=== PATIENT | male | born 1970 | race Caucasian/White ===

== ENCOUNTER 2016-10-11 18:16 | Emergency (ER) | payer MEDICAID ==
[2016-10-11 18:21] VITALS: BP 130/94; PULSE 98; RESP 16; TEMP 98.2; O2SAT 94
--- NOTE | 2016-10-11 18:33 | EDPHY ---
H & P Stated Complaint: Pt having pain feels like he "ruptured his hernia" Time Seen by Provider: 10/11/16 18:32 - Personal History Current Tetanus/Diphtheria Vaccine: Yes Current Tetanus Diphtheria and Acellular Pertussis (TDAP): Yes - Medical/Surgical History Hx Asthma: No Hx Chronic Respiratory Disease: No Hx Diabetes: No Hx Cardiac Disease: No Hx Renal Disease: No Hx Cirrhosis: No Hx Alcoholism: No Hx HIV/AIDS: No Hx Splenectomy or Spleen Trauma: No Other PMH: epilepsy hernia repair - Social History Smoking Status: Former smoker Constitutional: Initial Vital Signs Temperature (C) 36.8 C 10/11/16 18:17 Heart Rate 98 10/11/16 18:17 Respiratory Rate 16 10/11/16 18:17 Blood Pressure 130/94 H 10/11/16 18:17 O2 Sat (%) 94 10/11/16 18:17 O2 Delivery Mode Room Air Allergies/Adverse Reactions: No Known Allergies Allergy (Unverified 10/11/16 18:21) Medical Decision Making - Diagnostics Imaging: Discussed imaging studies w/ call center director Radiologist ED Course/Re-evaluation: CHIEF COMPLAINT: Right groin pain HISTORY OF PRESENT ILLNESS: This patient is a 46-year-old male who presenting to the Emergency Department complaining of intermittent pain to his right groin radiating to his right testicle beginning three hours prior to arrival. He describes the pain as a moderate to severe pressure without any identified exacerbating or alleviating factors. He denies any additional complaints; no hematuria, abdominal pain, dysuria, vomiting or diarrhea. He has a history of bilateral inguinal hernias with right-sided hernia repair. Medical history also includes one prior kidney stone. REVIEW OF SYSTEMS: A 10 point review of systems was performed and is negative with the exception of the elements mentioned in the history of present illness and left-sided neuropathy at baseline. PHYSICAL EXAM: HR 98, BP 130/94, O2 Sat 94%, RR 16. Temp noted at 36.8C. General Appearance: Alert, well hydrated, appropriate, and non-toxic appearing. Head: Atraumatic without scalp tenderness or obvious injury Eyes: Pupils equal, round, reactive to light and accommodation, EOMI, no trauma , no injection. Ears: Clear bilaterally, no perforation, normal landmarks Nose: Atraumatic, no rhinorrhea, clear. Throat: There is no erythema or exudates, no lesions, normal tonsils, mucus membranes moist. Neck: Supple, 2+ carotid upstroke, nontender, no lymphadenopathy. Respiratory: No retractions, no distress, no wheezes, and no accessory muscle use. Lungs are clear to auscultation bilaterally. Cardiovascular: Regular rate and rhythm, no murmurs, rubs, or gallops. Bilateral carotid, radial, dorsalis pedis, and posterior tibial pulses intact. Good capillary refill all extremities. Gastrointestinal: Abdomen is soft, RLQ tenderness, non-distended, no masses, no rebound, no guarding, no peritoneal signs. Genitourinary: Non-tender, normal external appearance. Musculoskeletal: Normal active ROM of all extremities, atraumatic. Neurological: Alert, appropriate, and interactive. The patient has normal DTRs and non-focal cranial nerves, motor, sensory, and cerebellar exam. Skin: No rashes, good turgor, no nodules on palpation. Past medical history: Epilepsy, bilateral inguinal hernias, kidney stones, peripheral neuropathy Past surgical history: Right inguinal hernia repair Family history: Denies Social history: Father, lives in a van DIFFERENTIAL DIAGNOSIS: Differential diagnosis for the patient's scrotum pain includes but is not limited to: kidney stone, UTI, inguinal hernia. MEDICAL DECISION MAKING: This 46-year-old male with history of bilateral inguinal hernias and one prior kidney stone presents with intermittent scrotum pain beginning three hours prior to arrival. His pain is not reproducible. He does have RLQ tenderness to palpation. There are no palpable masses on exam. Will proceed with CT of the abdomen and UA. The patient declines medication for pain at this time. UA obtained and is negative for UTI or hematuria. 194: Imaging results reported to me by Dr. Herbert Hogue, radiologist, and are negative for kidney stone or hernia. I discuss imaging and UA results with the patient. He will be discharged home in good condition.with OTC pain management instructions and return precautions. - Data Points Laboratory Results: 10/11/16 19:00 Urine Color YELLOW Urine Appearance CLEAR Urine pH 5.0 (5.0-7.5) Ur Specific [place] 1.026 (1.002-1.030) Urine Protein NEGATIVE (NEGATIVE) Urine Ketones TRACE H (NEGATIVE) Urine Blood NEGATIVE (NEGATIVE) Urine Nitrate NEGATIVE (NEGATIVE) Urine Bilirubin NEGATIVE (NEGATIVE) Urine Urobilinogen 2.0 EU H EU (0.2-1.0) Ur Leukocyte Esterase NEGATIVE (NEGATIVE) Urine RBC 1-3 /hpf /hpf (0-3) Urine WBC 1-3 /hpf /hpf (0-3) Ur Epithelial Cells NONE SEEN /lpf /lpf (NONE-1+) Urine Mucus TRACE /lpf /lpf (NONE-1+) Urine Glucose NEGATIVE (NEGATIVE) Departure - Departure Disposition: Home, Routine, Self-Care Clinical Impression: Right groin pain Condition: Good Instructions: Groin Pain (ED) Additional Instructions: 1. Take 600mg Ibuprofen every 6 hours as needed for pain. 2. Follow-up with your primary care provider for reevaluation if your symptoms do not improve in 2-3 days. 3. Return to the Emergency Department for severe pain, blood in your urine, fever or chills, or other serious concerns. Referrals: JESSICA SANDRA [Other] - As per Instructions Report Scribed for: Urbano Turcios Report Scribed by: Sofia Cortes Date of Report: 10/11/16 Time of Report: 18:35
[2016-10-11 19:17] LABS: COLOR YELLOW; LEUKOCYTE ESTERASE,URINE NEGATIVE (NEGATIVE); MUCUS TRACE /lpf (NONE-1+); NITRITE,URINE NEGATIVE (NEGATIVE)
[2016-10-11] MEDS ORDERED: OFLOXACIN 0.3% SOLN PREPACK OPHT.BTL TAKEHOME ONE (19:59)
== END 2016-10-11 20:00 | disposition home or self-care (01) ==
DX: R10.30 Lower abdominal pain, unspecified (principal); Z87.891 Personal history of nicotine dependence

== ENCOUNTER 2017-09-24 15:19 | Emergency (ER) | payer MEDICAID ==
--- NOTE | 2017-09-24 15:25 | EDPHY ---
H & P Time Seen by Provider: 09/24/17 15:22 HPI/ROS: CHIEF COMPLAINT: Laceration to nose HISTORY OF PRESENT ILLNESS: 47-year-old homeless male with up-to-date tetanus arrives via ambulance after he jumped into a trash dumpster and a cocked michael pigeon launcher released impacting on the bridge of the nose. No loss of consciousness. No oral injury. No headache. No headache. No anticoagulant use. No visual disturbance or visual acuity changes. No diplopia. No epistaxis. No Anticoagulant use. No amnesia. No alcohol or drug use. PRIMARY CARE PROVIDER: REVIEW OF SYSTEMS: A ten point review of systems was performed and is negative with the exception of the items mentioned in the HPI PAST MEDICAL/SURGICAL HISTORY: no anticoagulant use, no relevant medical/ surgical history SOCIAL HISTORY: denies alcohol use at time of incident PHYSICAL EXAM 1) GENERAL: Well-developed, well-nourished, alert and oriented. Appears to be in no acute distress. Answering questions appropriately. GCS 15 2) HEAD: Normocephalic, atraumatic. 3) HEENT: Pupils equal, round, reactive to light bilaterally. Bridge of nose 2 cm transverse laceration. Negative Horners. Nasopharynx, oropharynx, clear. No angulation of the nose No septal hematoma. No rhinorrhea. No oral trauma. Ears bilaterally with normal tympanic membranes. No hemotympanum. No fluid or blood in the external auditory canal. No raccoon eyes. No Chapman sign. Teeth are normally aligned with no gross malocclusion, TMJ bilaterally nontender, facial bones nontender including the zygomatic arch, maxilla mandible. 4) NECK: No cervical collar is on. Posterior cervical spine is nontender, no stepoff, no effusion. Full range of motion which does not elicit any midline cervical spine pain, no posterior midline tenderness, no step-off. 5) LUNGS: Clear to auscultation bilaterally, no wheezes, no rhonchi, no retractions. No obvious signs of trauma. No chest wall pain. No flaring, no grunting. Moving symmetrically. No crepitus. 6) HEART: [Regular rate and rhythm, 7) ABDOMEN: No guarding, no rebound, no focal tenderness, no peritoneal signs, no signs of trauma, no ecchymosis 8) MUSCULOSKELETAL: Moving all extremities, no focal areas of tenderness, no obvious trauma. 9) BACK: No midline vertebral tenderness, no fluctuance, no step-off, no obvious trauma, no visual or palpable abnormality. 10) SKIN: laceration to bridge of nose DIFFERENTIAL DIAGNOSIS: In no particular include but limited to laceration, open nasal fracture, Smoking Status: Former smoker Constitutional: Initial Vital Signs Temperature (C) 36.5 C 09/24/17 15:22 Heart Rate 85 09/24/17 15:22 Respiratory Rate 18 09/24/17 15:22 Blood Pressure 161/89 H 09/24/17 15:22 O2 Sat (%) 99 09/24/17 15:22 O2 Delivery Mode Room Air Allergies/Adverse Reactions: No Known Allergies Allergy (Unverified 10/11/16 18:21) Home Medications: Medication Instructions Recorded Amoxicillin/Clavulanate Pot 875 mg PO BID #14 tab 09/24/17 [Augmentin 875 mg tab] Marijuana 09/24/17 MDM/Departure - MDM Procedures: Procedure: Laceration repair. I explained the indications, risks and benefits for both laceration repair and anesthetic administration. Verbal consent was obtained from the patient . The laceration on the bridge of nose was anesthetized using 0.5% bupivicaine without epinephrine . After anesthetic administered the patient was observed for a period of time and had no apparent adverse effects. The wound was cleaned , prepped, draped in normal sterile fashion and explored to its base. No foreign body seen, no foreign bodies palpated. The wound was repaired with 10 simple interrupted 6 0 Prolene sutures. The wound repair was complex. The procedure was performed by myself. Patient has been informed that scarring will occur, although efforts have been made to minimize this. ED Course/Re-evaluation: Patient has been re-evaluated with serial examinations. He has negative [place] head CT rules. Patient informed that he more likely has fractured his nasal bone. Given ENT follow-up information, started on prophylactic antibiotics. Usual and customary head injury and nasal injury precautions instructions provided. Recommend follow up with ENT. Care of patient under supervision of primary Supervising physician Dr Love . - Depart Disposition: Home, Routine, Self-Care Clinical Impression: Nasal laceration Qualifiers: Encounter type: initial encounter Qualified Code(s): S01.21XA - Laceration without foreign body of nose, initial encounter Condition: Good Instructions: Care For Your Stitches (ED), Laceration (ED) Additional Instructions: ALTHOUGH THERE IS NO EVIDENCE OF SERIOUS HEAD INJURY AT THIS TIME, DELAYED SIGNS CAN APPEAR 24 TO 48 HOURS AFTER INJURY. PLEASE RETURN TO THE EMERGENCY DEPARTMENT (ED) IMMEDIATELY IF YOU HAVE INCREASED HEADACHE, PERSISTENT HEADACHE , VOMITING, WEAKNESS, CONFUSION OR VISUAL PROBLEMS. WE RECOMMEND THAT YOU DO NOT RESUME CONTACT SPORTS OR ACTIVITIES THAT TAKE COORDINATION OR BALANCE SUCH SKIING OR RIDING A BICYCLE UNTIL CLEARED TO DO SO BY YOUR DOCTOR OR BY A NEUROLOGIST. Prescriptions: Amoxicillin/Clavulanate Pot [Augmentin 875 mg tab] 875 mg PO BID #14 tab Referrals: Return, to the ER in 5 days for suture removal [Other] - As per Instructions Bhavin Greene MD [Medical Doctor] - 1-2 days without fail
[2017-09-24 16:20] VITALS: BP 134/79
== END 2017-09-24 16:17 | disposition home or self-care (01) ==
LOC: EDUNIT#
PROC: 09QKXZZ Repair Nasal Mucosa and Soft Tissue, External Approach (ICD-10-PCS; principal; 2017-09-24)
DX: S01.21XA Laceration without foreign body of nose, initial encounter (principal); Z87.891 Personal history of nicotine dependence; W22.8XXA Striking against or struck by other objects, initial encounter; Y99.8 Other external cause status; Y93.39 Activity, other involving climbing, rappelling and jumping off

== ENCOUNTER 2018-03-14 11:45 | Emergency (ER) | payer MEDICAID ==
[2018-03-14 11:52] VITALS: BP 131/86
--- NOTE | 2018-03-14 12:20 | EDPHY ---
H & P Time Seen by Provider: 03/14/18 11:53 HPI/ROS: CHIEF COMPLAINT: Right foot pain, right groin pain HISTORY OF PRESENT ILLNESS: Patient is a 48-year-old male presents emergency department with right foot pain and right groin pain. 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 He also has been long boarding extensively. He states that he developed pain when he struck his right foot on the ground pump his skateboard. He subsequently developed pain in the right groin. His pain is mild. He has had no nausea vomiting. No incontinence of urine or stool. No dysuria frequency. Patient has no numbness or tingling. REVIEW OF SYSTEMS: 10 systems were reveiwed and are negative with the exception of the elements mentioned in the history of present illness. Past Medical/Surgical History: Includes epilepsy Past surgical history: Includes hernia repair Social history: The patient is homeless Smoking Status: Former smoker Physical Exam: Vitals noted GENERAL: Well-appearing, in no acute distress, alert. HEENT: Eyes normal to inspection, nose ring. RESPIRATORY: Clear to auscultation bilaterally. CVS: Regular rate and rhythm, no rubs, murmurs, or gallops. ABDOMEN: Soft, nontender. : Patient's right groin has no palpable mass. His testicle is normal. There is no palpable hernia. BACK: Normal to inspection, no CVA tenderness. SKIN: Normal color, no rash, warm, dry. No pallor. EXTREMITIES: Patient has mild tenderness to palpation at the base of his calcaneus extending to his arch. This appears to be over the plantar fascia. There is no erythema or warmth. No pedal edema, no calf tenderness, no Homans sign or cords, no joint swelling. NEURO/PSYCH: Alert and oriented, normal mood and affect, normal motor sensory exam. Constitutional: Initial Vital Signs Temperature (C) 36.6 C 03/14/18 11:49 Heart Rate 74 03/14/18 11:49 Respiratory Rate 18 03/14/18 11:49 Blood Pressure 131/86 H 03/14/18 11:49 O2 Sat (%) 96 03/14/18 11:49 O2 Delivery Mode Room Air Allergies/Adverse Reactions: No Known Allergies Allergy (Verified 03/14/18 11:48) Home Medications: Medication Instructions Recorded Marijuana 09/24/17 Medical Decision Making ED Course/Re-evaluation: In the emergency department I discussed possible etiologies with the patient. I answered all his questions. This time I do not feel he needs imaging. Do not feel the patient is having incarcerated or strangulated hernia. I instructed the patient on treatment of his foot pain. This could be plantar fasciitis. I explained the diagnosis. The patient was given warnings prior to leaving. Differential Diagnosis: My differential includes but is not limited to heel contusion, plantar fasciitis , fracture, sprain, strain, incarcerated hernia, strangulated hernia, hernia Departure - Departure Disposition: Home, Routine, Self-Care Clinical Impression: Rt groin pain, Plantar fasciitis of right foot Condition: Good Instructions: Plantar Fasciitis (ED), Plantar Fasciitis Exercises (ED), Groin Pain (ED) Additional Instructions: Follow instructions provided. Return with increasing pain, nausea, vomiting or any other concerns. Referrals: Suresh Gaston MD [Medical Doctor] - 5-7 days, call for appt.
== END 2018-03-14 12:28 | disposition home or self-care (01) ==
DX: M72.2 Plantar fascial fibromatosis (principal); R10.9 Unspecified abdominal pain; Z87.891 Personal history of nicotine dependence; Z59.0 Homelessness

== ENCOUNTER 2018-10-06 16:09 | Emergency (ER) | payer MEDICAID ==
--- NOTE | 2018-10-06 16:43 | EDPHY ---
H & P Stated Complaint: R shoulder injury after skateboard accident 8 days ago Source: Patient Exam Limitations: No limitations - Medical/Surgical History Hx Asthma: No Hx Chronic Respiratory Disease: No Hx Diabetes: No Hx Cardiac Disease: No Hx Renal Disease: No Hx Cirrhosis: No Hx Alcoholism: No Hx HIV/AIDS: No Hx Splenectomy or Spleen Trauma: No Other PMH: "epilepsy". hernia repair - Social History Smoking Status: Light smoker Time Seen by Provider: 10/06/18 16:42 HPI/ROS: HPI: This is a 48-year-old male who presents with Chief Complaint: R shoulder injury after skateboard accident 8 days ago Location: Right shoulder, left clavicle Quality: Injury Duration: 8 days ago Signs and Symptoms: No bleeding, no radiation, no numbness, no weakness, no tingling, no incontinence, + decreased range of motion, no swelling, + pain, no fever Timing: Acute, worse with certain movement Severity: Moderate Context: Patient was riding his skateboard, when he lost his balance and fell forward landing on both outstretched hands and then turning and hitting his right shoulder. He denies any pain in his bilateral hands or wrists or elbows. He complains of right shoulder discomfort and inability to raise to heart level or above his head. He also notes "a bump" right below his left clavicle. Right-hand dominant. Denies LOC/head injury/neck pain/dizziness/nausea/ vomiting/amnesia. Does Not take blood thinners. Modifying Factors: No [id number] pain medications Comment: ROS: A comprehensive 10 system review of systems is otherwise negative aside from elements mentioned in the history of present illness. MEDICAL/SURGICAL/SOCIAL HISTORY: Medical history: Epilepsy Surgical history: Hernia repair Social history: Marijuana user. Transient. Cheondoism CONSTITUTIONAL: Physically fit middle-aged white male who appears older than stated age, awake and alert, no obvious distress HEENT: Atraumatic and normocephalic. NECK: supple, no midline tenderness, flexion 45 degrees, extension 45 degrees, right and left lateral flexion 45 degrees. No meningismus. Cardiovascular: Normal S1/S2, regular rate, regular rhythm, without murmur rub or gallop. PULMONARY/CHEST: Symmetrical and mild left-sided anterior right below the clavicle tenderness to palpation but no ecchymosis or deformity. no crepitus. Clear to auscultation bilaterally. Good air movement. No accessory muscle usage. ABDOMEN: Soft, nondistended, nontender, no ecchymosis. PELVIC: no pain with rocking; bilateral hips flexion 125 degrees, extension 30 degrees, with no pain internal rotation and no pain external rotation. BACK: No midline tenderness, no paraspinous spasm, deep tendon reflexes 2/2, no pain with straight leg raise, No foot drop. Achilles reflexes are equal bilaterally. Able to walk on heels and toes without difficulty. EXTREMITIES: 2/2 pulses, strength 5/5, right SHOULDER: Decreased abduction, horizontal flexion, horizontal extension secondary to pain. Moderate pain with Neer test/Dorman test (impingement). Mild Tenderness to palpation over AC joint. no clavicle deformity appreciated. DIP/PIP/MCP flexion/extension intact with good light touch sensation. no deformities, no clubbing, no cyanosis , no edema. NEUROLOGICAL: no focal neuro deficits. GCS 15. Light touch sensation intact. SKIN: Warm and dry, no erythema. no rash. Good capillary refill. (Diana Olivia) Constitutional: Initial Vital Signs Temperature (C) 36.7 C 10/06/18 16:35 Heart Rate 75 10/06/18 16:35 Respiratory Rate 16 10/06/18 16:35 Blood Pressure 113/70 10/06/18 16:35 O2 Sat (%) 97 10/06/18 16:35 O2 Delivery Mode Room Air Allergies/Adverse Reactions: No Known Allergies Allergy (Verified 10/06/18 16:33) Home Medications: Medication Instructions Recorded Marijuana 09/24/17 Medical Decision Making - Diagnostics Imaging Results: Imaging Impressions Chest X-Ray 10/06/18 17:02 Impression: 1. No active cardiopulmonary disease seen. 2. Anterior wedge compression fractures of T6 and T7 of indeterminate age. This could be related to recent trauma. Clinical correlation recommended. If indicated, consider DEXA scan at some point to evaluate for underlying bone mineral density. Shoulder X-Ray 10/06/18 17:02 Impression: Normal Right shoulder series. ED Course/Re-evaluation: I did not see this patient while he was in the emergency department. However his care was discussed with the PA while the patient was in the department. I agree with treatment plan and management (Fabian Medina) Vital signs reviewed and stable upon arrival. Right shoulder x-ray my read shows no fracture, no dislocation. Chest x-ray ordered radiology read: Anterior wedge compression fractures of T6 and T7 of indeterminate age. Back exam is completely benign. Patient reports that he fell a couple weeks ago on his back but denies any back pain. Patient adamantly declines CT thoracic scan for further evaluation. Patient is being very difficult at this time. No neurological deficits to warrant emergent MRI Given follow-up with Neurosurgery if patient deems to pursue further treatment. No signs of neurovascular compromise/tenting of skin/compartment syndrome/ extremities and joints examined above and below area of concern and are neurovascularly intact. This patient was seen under the supervision of my secondary supervising physician. I evaluated and cared for this patient independently. (Diana Olivia) Differential Diagnosis: Shoulder injury differential diagnosis includes but is not limited to clavicle fracture, contusion, AC joint separation, rotator cuff injury, labral tear, humeral head fracture, sprain, scapula fracture. (Diana Olivia) Departure - Departure Disposition: Home, Routine, Self-Care Clinical Impression: Sprain of right shoulder Qualifiers: Encounter type: initial encounter Shoulder sprain type: unspecified sprain Qualified Code(s): S43.401A - Unspecified sprain of right shoulder joint, initial encounter Contusion of rib on left side Qualifiers: Encounter type: initial encounter Qualified Code(s): S20.212A - Contusion of left front wall of thorax, initial encounter Compression fracture of thoracic vertebra Qualifiers: Encounter type: subsequent encounter Thoracic vertebra fracture level: T7 Fracture healing: with routine healing Qualified Code(s): S22.060D - Wedge compression fracture of T7-T8 vertebra, subsequent encounter for fracture with routine healing Condition: Good Instructions: How to Use a Sling (ED), Shoulder Sprain (ED), Rib Contusion (ED) , Vertebral Compression Fracture (ED) Additional Instructions: Wear the sling while out of bed until pain free or seen by Orthopedics. Take Tylenol 650 mg every 4 hours and/or Ibuprofen 600 mg every 8 hours with food as needed for pain. Apply ice for 30 minutes at a time; 2-3 times per day for the next 1-2 days. Follow up with [facility]/Orthopedics in 7-10 days if symptoms persist at which time they will evaluate and recommend with you if conservative management versus MRI is indicated. Follow-up with Neurosurgery regarding your thoracic compression fractures. Return to the ER immediately if you experience new or worsening pain, discoloration, numbness, tingling, or any other symptoms that concern you. Referrals: [facility],. [Clinic] - As per Instructions Bhavin Bello MD [Medical Doctor] - As per Instructions
[2018-10-06 17:51] VITALS: BP 114/69
== END 2018-10-06 17:51 | disposition home or self-care (01) ==
DX: S43.401A Unspecified sprain of right shoulder joint, initial encounter (principal); S20.212A Contusion of left front wall of thorax, initial encounter; S22.060D Wedge compression fracture of T7-T8 vertebra, subsequent encounter for fracture with routine healing; V00.131A Fall from skateboard, initial encounter; Y93.51 Activity, roller skating (inline) and skateboarding
CPT/HCPCS: A4565